=== PATIENT | male | born 1940 | race Caucasian/White ===

== ENCOUNTER 2017-12-12 18:50 | Inpatient (IN) | payer OTHER, MEDICARE ==
[2017-12-12 19:44] LABS: % BASOPHILS 0.5 % (0.0-2.0); % EOSINOPHILS 0.1 % (0.0-5.0); % LYMPHOCYTES 12.8 % (20.0-50.0); % MONOCYTES 8.9 % (2.0-10.0); % NEUTROPHILS 77.7 % (40.0-80.0); HEMOGLOBIN 11.5 gm/dL (12-16); LYMPHOCYTE ABSOLUTE 0.5 Th/cmm (1.5-3.0); MEAN CELL VOLUME 82.6 fl (80-99); MEAN CORPUSCULAR HEMOGLOBIN 26.3 pg (27.0-31.0); MEAN CORPUSCULAR HGB CONC 31.9 pg (28.0-36.0); MEAN PLATELET VOLUME 8.2 fl; MONOCYTE ABSOLUTE 0.4 Th/cmm (0.3-1.0); NEUTROPHILE ABSOLUTE 3.2 Th/cmm (1.8-8.0); PLATELET COUNT 129 Th/cmm (150-400); RED BLOOD COUNT 4.36 Mil/cmm (3.80-5.80); RED CELL DISTRIBUTION WIDTH 17.6 % (11.5-20.0); WHITE BLOOD COUNT 4.1 Th/cmm (4.8-10.8)
--- NOTE | 2017-12-12 19:56 | ED Physician Chart ---
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 HE IS CHRONICALLY ILL WITH A HISTORY OF HYPERTENSION, STATUS POST CVA,CHF, POLIO AND ARTHRITIS. Allergies:: Allergies Allergy/AdvReac Type Severity Reaction Status Date / Time Penicillins [PCN] Allergy Verified 12/12/17 19:19 Vitals:: Vital Signs - 8 hr 12/12/17 19:19 Temp 97.6 F HR 67 RR 17 BP 121/57 O2 Sat % 94 Historian:: EMS, Medical Records Review:: Nurse's Note Reviewed, Old Chart Reviewed, Transfer documents Reviewed ED Review of Systems - Review of Systems General/Constitutional: No fever, No chills, No weight loss, No weakness, No diaphoresis, No edema, No loss of appetite, Other (THIS PATIENT IS UNABLE TO GIVE A REVIEW OF SYSTEMS.) Skin: No skin lesions, No rash, No bruising Head: No headache, No light-headedness Eyes: No loss of vision, No pain, No diplopia ENT: No earache, No nasal drainage, No sore throat, No tinnitus Neck: No neck pain, No swelling, No thyromegaly, No stiffness, No mass noted Cardio Vascular: No chest pain, No palpitations, No PND, No orthopnea, No edema Pulmonary: No SOB, No cough, No sputum, No wheezing GI: No nausea, No vomiting, No diarrhea, No pain, No melena, No hematochezia, No constipation, No hematemesis G/U: No dysuria, No frequency, No hematuria Musculoskeletal: No bone or joint pain, No back pain, No muscle pain Endocrine: No polyuria, No polydipsia Psychiatric: No prior psych history, No depression, No anxiety, No suicidal ideation Hematopoietic: No bruising, No lymphadenopathy Allergic/Immuno: No urticaria, No angioedema Neurological: No syncope, No focal symptoms, No weakness, No paresthesia, No headache, No seizure, No dizziness, No confusion, No vertigo ED Past Medical History - Past Medical History Obtainable: Yes Past Medical History: HTN, CAD, CHF, CVA/TIA, Arthritis, Dementia Family History: Other ( FATHER ALS) Social History: Non Smoker, No Alcohol, No Drug Use, Care Facility Surgical History: CABG, Hernia, Pacemaker Family Medical History - Family Member Father History Unknown: Yes Ethnicity: Non- Living Status: Other Medical History: ALS ED Physical Exam - Physical Examination General/Constitutional: Awake, Well-developed, well-nourished, Alert, No distress, GCS 15, Non-toxic appearing, Ambulatory Other Gen/Cons comments:: LETHARGIC AND DISORIENT TO PLACE AND SITUATION. WITH LEFT SIDED PARALYSIS AND GENERALIZE WEAKNESS Head: Atraumatic Eyes: Lids, conjuctiva normal, PERRL, EOMI Skin: Nl inspection, No rash, No skin lesions, No ecchymosis, Well hydrated, No lymphadenopathy ENMT: External ears, nose nl, Nasal exam nl, Lips, teeth, gums nl Neck: Nontender, Full ROM w/o pain, No JVD, No nuchal rigidity, No bruit, No mass, No stridor Respiratory: Nl effort/Exclusion, Clear to Auscultation, No Wheeze/Rhonchi/Rales Cardio Vascular: RRR, No murmur, gallop, rubs, NL S1 S2 GI: No tenderness/rebounding/guarding, No organomegaly, No hernia, Normal BS's, Nondistended, No mass/bruits, No McBurney tenderness : No CVA tenderness Extremities: No tenderness or effusion, Full ROM, normal strength in all extremities, No edema, Normal digits & nails Neuro/Psych: Alert/oriented, DTR's symmetric, Normal sensory exam, Normal motor strength (LEFT SIDED SPASTIC PARALYSIS), Judgement/insight normal, Mood normal, Normal gait, No focal deficits Misc: Normal back, No paraspinal tenderness ED Labs/Radiology/EKG Results - Lab Results Results: Laboratory Tests 12/12/17 19:32 WBC 4.1 L RBC 4.36 Hgb 11.5 L Hct 36.0 L MCV 82.6 MCH 26.3 L MCHC Differential 31.9 RDW 17.6 Plt Count 129 L MPV 8.2 Neutrophils % 77.7 Lymphocytes % 12.8 L Monocytes % 8.9 Eosinophils % 0.1 Basophils % 0.5 Abnormal Lab Results 12/12/17 12/12/17 12/12/17 19:20 19:32 19:32 WBC 4.1 L RBC 4.36 Hgb 11.5 L Hct 36.0 L MCV 82.6 MCH 26.3 L MCHC Differential 31.9 RDW 17.6 Plt Count 129 L MPV 8.2 Neutrophils % 77.7 Lymphocytes % 12.8 L Monocytes % 8.9 Eosinophils % 0.1 Basophils % 0.5 Sodium Potassium Chloride Carbon Dioxide Anion Gap BUN Creatinine Est GFR ( Amer) Est GFR (Non-Af Amer) BUN/Creatinine Ratio Glucose Calcium Total Bilirubin AST ALT Alkaline Phosphatase Troponin I 0.03 Total Protein Albumin Globulin Albumin/Globulin Ratio Urine Source [place] Urine Color YELLOW Urine Clarity HAZY Urine pH 6.0 Ur Specific [place] 1.025 Urine Protein 100 H Urine Glucose (UA) NEGATIVE Urine Ketones NEGATIVE Urine Blood LARGE H Urine Nitrate NEGATIVE Urine Bilirubin NEGATIVE Urine Urobilinogen 0.2 Ur Leukocyte Esterase MODERATE H Urine RBC >100 H Urine WBC >100 H Ur Epithelial Cells FEW Urine Bacteria NONE SEEN 12/12/17 19:32 WBC RBC Hgb Hct MCV MCH MCHC Differential RDW Plt Count MPV Neutrophils % Lymphocytes % Monocytes % Eosinophils % Basophils % Sodium 137 Potassium 3.3 L Chloride 104 Carbon Dioxide 23.1 Anion Gap 13.2 BUN 25 Creatinine 0.7 Est GFR ( Amer) TNP Est GFR (Non-Af Amer) TNP BUN/Creatinine Ratio 35.7 Glucose 158 H Calcium 8.6 Total Bilirubin 0.6 AST 28 ALT 10 Alkaline Phosphatase 91 Troponin I Total Protein 6.1 Albumin 3.3 L Globulin 2.8 Albumin/Globulin Ratio 1.2 Urine Source Urine Color Urine Clarity Urine pH Ur Specific [place] Urine Protein Urine Glucose (UA) Urine Ketones Urine Blood Urine Nitrate Urine Bilirubin Urine Urobilinogen Ur Leukocyte Esterase Urine RBC Urine WBC Ur Epithelial Cells Urine Bacteria - Radiology Results Results: CHEST X-RAY = P[place]Y [place] AREAS NOTED BILATERALLY - EKG Interpretations EKG Time:: 20:11 Rate & Rhythm: 60 BEAT A MINUTE, SINUS, [place]: LEFT AXIS Comments:: ALL WIDE COMPLEXES ED Assessment - Assessment General Assessment: 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
[2017-12-12 20:33] LABS: ALB/GLOB RATIO 1.2 (1.0-1.8); ALBUMIN 3.3 gm/dL (4.2-5.5); ALKALINE PHOSPHATASE 91 U/L (34-104); ANION GAP 13.2 (7.0-16.0); BILIRUBIN,TOTAL 0.6 mg/dL (0.3-1.0); BUN - UREA NITROGEN 25 mg/dL (7-25); CALCIUM SERUM 8.6 mg/dL (8.6-10.3); CARBON DIOXIDE 23.1 mEq/L (21.0-31.0); CHLORIDE 104 mEq/L (98-107); CREATININE - SERUM 0.7 mg/dL (0.7-1.3); GLUCOSE 158 mg/dL (70-105); POTASSIUM SERUM 3.3 mEq/L (3.5-5.1); SGOT 28 U/L (13-39); SGPT/ALT 10 U/L (7-52); SODIUM SERUM 137 mEq/L (136-145); TOTAL PROTEIN,SERUM 6.1 gm/dL (6.0-8.3)
[2017-12-12 20:37] LABS: URINE MICROSCOPIC INDICATED? YES; URINE SOURCE FOLEY PORT
[2017-12-12 20:40] LABS: URINE BILIRUBIN NEGATIVE (NEGATIVE); URINE BLOOD LARGE (NEGATIVE); URINE GLUCOSE (UA) NEGATIVE (NEGATIVE); URINE KETONE NEGATIVE (NEGATIVE); URINE LEUKOCYTE ESTERASE MODERATE (NEGATIVE); URINE NITRATE NEGATIVE (NEGATIVE); URINE PROTEIN 100 mg/dL (NEGATIVE); URINE UROBILINOGEN 0.2 E.U./dL (0.2 - 1.0)
[2017-12-12 20:46] LABS: URINE CLARITY HAZY (CLEAR); URINE COLOR YELLOW
[2017-12-12 20:53] LABS: URINE BACTERIA NONE SEEN /hpf (NONE SEEN); URINE EPITHELIAL CELLS FEW /lpf (FEW); URINE RBC >100 /hpf (0-5); URINE WBC >100 /hpf (0-5)
[2017-12-12] MEDS ORDERED: Lactated Ringer 1,000 ML IV SCH (20:56)
[2017-12-12 20:58] LABS: pH 7.49 (7.35-7.45)
[2017-12-12 20:59] LABS: ALLEN TEST POSITIVE
[2017-12-12] MEDS ORDERED: Potassium Chloride 40 MEQ, Lidocaine 1% 20mL Vial 25 MG in Sodium Chloride 0.9% 250 ML IV PRN (21:43)
[2017-12-12] MEDS ORDERED: Potassium Chloride 20 mEq ER Tab PO PRN (21:43)
[2017-12-12] MEDS ORDERED: Mag Sulfate 2gm/50mL Premix 2 GM/50 ML BAG IV PRN (21:43)
[2017-12-12] MEDS ORDERED: Morphine Sulfate 2 mg/mL 1mL Syr IVP PRN (21:43)
[2017-12-13] MEDS: Sodium Chloride 0.9% 1,000 ML IV SCH ×2 (06:23→23:03)
[2017-12-13 06:27] LABS: ANION GAP 8.1 (7.0-16.0); BUN - UREA NITROGEN 24 mg/dL (7-25); CALCIUM SERUM 8.3 mg/dL (8.6-10.3); CARBON DIOXIDE 26.9 mEq/L (21.0-31.0); CHLORIDE 102 mEq/L (98-107); CREATININE - SERUM 0.6 mg/dL (0.7-1.3); GLUCOSE 116 mg/dL (70-105); SODIUM SERUM 134 mEq/L (136-145)
[2017-12-13 06:37] LABS: % EOSINOPHILS 0.4 % (0.0-5.0); LYMPHOCYTE ABSOLUTE 0.9 Th/cmm (1.5-3.0); MEAN PLATELET VOLUME 8.3 fl
[2017-12-13 06:39] LABS: % BASOPHILS 0.1 % (0.0-2.0); % LYMPHOCYTES 14.7 % (20.0-50.0); % NEUTROPHILS 76.8 % (40.0-80.0); HEMATOCRIT 33.2 % (41.0-60); HEMOGLOBIN 10.8 gm/dL (12-16); MEAN CELL VOLUME 82.1 fl (80-99); MEAN CORPUSCULAR HEMOGLOBIN 26.8 pg (27.0-31.0); MEAN CORPUSCULAR HGB CONC 32.7 pg (28.0-36.0); MONOCYTE ABSOLUTE 0.5 Th/cmm (0.3-1.0); PLATELET COUNT 143 Th/cmm (150-400); RED BLOOD COUNT 4.04 Mil/cmm (3.80-5.80); RED CELL DISTRIBUTION WIDTH 17.3 % (11.5-20.0); WHITE BLOOD COUNT 6.4 Th/cmm (4.8-10.8)
--- NOTE | 2017-12-13 09:37 | Diagnostic Imaging Report ---
CHEST X-RAY: AP view INDICATION: Cough COMPARISON: None FINDINGS: Left there is evidence of prior median sternotomy. Left chest wall AICD apparatus is noted with leads in the region of the right atrium and right ventricle. There is abnormal opacity projecting along the left mid to left lower hemithorax. Mild cardiomegaly is noted. Small left effusion is noted. Gas-filled loops of bowel the upper abdomen are noted. Degenerative changes of the spine are noted. IMPRESSION: Abnormal opacity projecting along the left mid to lower hemithorax. This is indeterminate may be due to patient positioning, however infiltrate and mass lesion cannot be excluded. Repeat chest x-ray is recommended for further assessment. If necessary, CT follow-up may also be obtained. AICD noted Evidence of prior median sternotomy Mild cardiomegaly.
--- NOTE | 2017-12-13 09:56 | Diagnostic Imaging Report ---
Head CT without intravenous contrast Indication: Altered mental status Comparison: None Technique: Axial images were obtained from the vertex to the skull base without IV contrast. Coronal reconstructions were made. Total DLP: [id number], [id number] FINDINGS: Exam is limited due to motion. Images of the brain obtained without contrast demonstrate no evidence of an acute hemorrhage. Atrophy is noted. Areas of encephalomalacia are seen along the right parietal and temporal lobe likely due to an old infarct. The ventricles and basal cisterns are patent. No mass effect or midline shift. Assessment for skull fracture is limited due to motion however no obvious skull fracture identified. Atherosclerosis noted. IMPRESSION: Limited exam due to motion. No evidence of acute intracranial hemorrhage. RIGHT temporal and parietal lobe encephalomalacia likely related to an old infarct Atrophy. Atherosclerotic vascular disease.
[2017-12-13] MEDS ORDERED: Potassium Chloride 20 mEq ER Tab PO ONE (10:01)
[2017-12-13] MEDS ORDERED: Hydrocodone/APAP 5mg/325mg Tab PO PRN (10:06)
[2017-12-13] MEDS ORDERED: Morphine Sulfate 4 mg/mL 1mL Syr IVP PRN (10:06)
--- NOTE | 2017-12-13 10:48 | History & Physical ---
ADMIT DATE: 12/13/2017 CHIEF COMPLAINT: Cough, congestion, fevers and shortness of breath and worsening confusion. HISTORY OF PRESENT ILLNESS: The patient is a pleasant 77-year-old male. He lives in a boarding home, yesterday he was found to be more confused than usual. He was experiencing cough, congestion and shortness of breath as well. He presented to the Emergency Room, where he was found to have COPD exacerbation along with aspiration pneumonia and UTI. PAST MEDICAL HISTORY: Significant for right-sided CVA with left hemiplegia along with COPD and chronic pain and DJD as well. SOCIAL HISTORY: Denies any history of alcohol, tobacco, or drug abuse. FAMILY HISTORY: Noncontributory. ALLERGIES: HE IS ALLERGIC TO PENICILLIN, IT CAUSES RASH. SURGICAL HISTORY: Positive for coronary artery bypass surgery about 20 years ago. MEDICATIONS: Home medication reviewed and reconciled. REVIEW OF SYSTEMS: GENERAL: Positive recent fatigue, confusion and decreased appetite. HEENT: No recent head trauma, change in vision, taste, hearing, or smell. Oral: No recent pain or discharge. NECK: No recent tracheal deviation. ABDOMEN: No pain or distension. SKIN: No recent rashes. MUSCULOSKELETAL: He has history of muscle weakness, decreased appetite and muscle wasting on left side of the body, which is worse than the right. RESPIRATORY: Positive for COPD and history of cough and congestion for the last couple of days. NEUROLOGIC: He has history of right-sided CVA. CARDIOVASCULAR: History of coronary artery disease and bypass graft. PSYCHIATRIC: No history of psychosis, hallucination. MUSCULOSKELETAL: He is mostly bedbound. PHYSICAL EXAMINATION: VITAL SIGNS: Temperature 97.7 degrees, heart rate is 64, respirations 16, blood pressure 98/56. Currently no pain. GENERAL: No acute distress. He is more awake and alert now. HEENT: No acute issues. NECK: Trachea is midline. CARDIOVASCULAR: Regular rate and rhythm. RESPIRATORY: Decreased breath sounds bilaterally with rales and congestion and wheezing as well. SKIN: No rashes. MUSCULOSKELETAL: He has significant muscle wasting on the left side of the body and some on the right side as well. NEUROLOGIC: He has left-sided hemiplegia. PSYCHIATRIC: No psychosis or hallucinations. NEUROLOGIC: He has left-sided hemiplegia. GENITOURINARY: He has been experiencing increased urinary frequency, but no hematuria noted. LABORATORY DATA: UA is positive for UTI. Sodium 137, potassium 3.3, chloride 104, bicarbonate 23.1, BUN 25, creatinine 0.7, glucose 158, calcium is 8.3, albumin is low at 3.3. He has also been experiencing decreased appetite and weight loss. ABG shows pH of 7.49, pO2 73, bicarbonate 30.5. UA is positive for UTI. White count is 4.1, hemoglobin is 11.5. Chest x-ray does show infiltrate. CT of the head was done, which does not show any acute abnormalities. ASSESSMENT: 1. Chronic obstructive pulmonary disease exacerbation. 2. Aspiration pneumonia. 3. Metabolic encephalopathy. 4. Urinary tract infection. 5. Hypokalemia. 6. Moderate malnutrition. 7. Coronary artery disease with history of coronary artery bypass graft. 8. Right-sided cerebrovascular accident with left hemiplegia. PLAN: The patient's blood pressure is running on the low side. He is receiving IV hydration. I am holding parameters for his medications. He was on Dilaudid 4 mg at home. I asked him and he is not in any pain, so I have stopped it and put on [place] p.o. as needed. Replenish the potassium. He is on Levaquin and Flagyl. No Zosyn since he is ALLERGIC TO PENICILLIN. Prognosis is guarded. Also, his Plavix has been continued from home. Rocephin has been discontinued. He is on Levaquin and Flagyl now. Follow up on urine cultures. Discussed care plan. JOB# [id number]
[2017-12-13] MEDS: Levofloxacin 500mg/100mL 500 MG/100 ML BAG IV SCH (11:10)
[2017-12-13] MEDS ORDERED: Sodium Chloride 0.9% 500 ML IV ONE (12:29)
[2017-12-13] MEDS: metroNIDAZOLE 500mg/NS 100mL 500 MG/100 ML BAG IV SCH ×2 (13:18→20:00)
[2017-12-13] MEDS ORDERED: cefTRIAXone 1 GM in Sodium Chloride 0.9% 50 ML IV SCH (21:00)
[2017-12-14] MEDS: metroNIDAZOLE 500mg/NS 100mL 500 MG/100 ML BAG IV SCH ×2 (04:06→13:34)
[2017-12-14 06:25] LABS: % LYMPHOCYTES 25.8 % (20.0-50.0); % MONOCYTES 10.4 % (2.0-10.0); % NEUTROPHILS 62.8 % (40.0-80.0); HEMATOCRIT 31.6 % (41.0-60); HEMOGLOBIN 10.4 gm/dL (12-16); LYMPHOCYTE ABSOLUTE 0.7 Th/cmm (1.5-3.0); MEAN CELL VOLUME 81.9 fl (80-99); MEAN CORPUSCULAR HEMOGLOBIN 26.8 pg (27.0-31.0); MEAN CORPUSCULAR HGB CONC 32.7 pg (28.0-36.0); MEAN PLATELET VOLUME 8.3 fl; MONOCYTE ABSOLUTE 0.3 Th/cmm (0.3-1.0); NEUTROPHILE ABSOLUTE 1.7 Th/cmm (1.8-8.0); PLATELET COUNT 129 Th/cmm (150-400); RED BLOOD COUNT 3.86 Mil/cmm (3.80-5.80)
[2017-12-14 06:36] LABS: ANION GAP 7.1 (7.0-16.0); BUN - UREA NITROGEN 18 mg/dL (7-25); CALCIUM SERUM 8.1 mg/dL (8.6-10.3); CARBON DIOXIDE 27.6 mEq/L (21.0-31.0); CHLORIDE 106 mEq/L (98-107); CREATININE - SERUM 0.6 mg/dL (0.7-1.3); GLUCOSE 93 mg/dL (70-105); POTASSIUM SERUM 3.7 mEq/L (3.5-5.1); SODIUM SERUM 137 mEq/L (136-145)
[2017-12-14 07:31] LABS: WHITE BLOOD COUNT 2.7 Th/cmm (4.8-10.8)
[2017-12-14] MEDS: Levofloxacin 500mg/100mL 500 MG/100 ML BAG IV SCH (09:51)
--- NOTE | 2017-12-14 16:40 | Discharge Summary ---
DATE OF DISCHARGE: 12/14/2017 DATE OF DISCHARGE: 12/14/2017. CAUSE OF ADMISSION: The patient is a pleasant 77-year-old male. He lives in a boarding home. He was found to be more confused than usual. He was experiencing cough, congestion, and shortness of breath. He presented to the ER where he was found to have COPD exacerbation along with aspiration pneumonia and UTI. ADMITTING DIAGNOSES: 1. Chronic obstructive pulmonary disease exacerbation. 2. Aspiration pneumonia. 3. Metabolic encephalopathy. 4. Urinary tract infection. 5. Hypokalemia. 6. Moderate malnutrition. 7. Coronary artery disease with history of coronary artery bypass graft. 8. Right-sided cerebrovascular accident, left hemiplegia. DISCHARGE DIAGNOSES: 1. Chronic obstructive pulmonary disease exacerbation. 2. Aspiration pneumonia. 3. Metabolic encephalopathy. 4. Urinary tract infection. 5. Hypokalemia. 6. Moderate malnutrition. 7. Coronary artery disease with history of coronary artery bypass graft. 8. Right-sided cerebrovascular accident, left hemiplegia. SUMMARY OF HOSPITAL COURSE: The patient received IV hydration. His blood pressure running on the low side, holding parameters were given for the medication. He has not been on any blood pressure medications. I also stopped his home medication of Dilaudid as he was not in any pain. He was given p.r.n. [place], but he did not even require that, potassium was replenished. He was on Levaquin and Flagyl. No Zosyn was started since allergic to PENICILLIN. Prognosis was discussed with the patient. He is awake and alert. Plavix was continued, the patient is doing much better now. PHYSICAL EXAMINATION: VITAL SIGNS: Temperature is 98.6 degrees, heart rate is 60, respirations 18, and blood pressure 97/42. Currently, no pain. GENERAL: No acute distress. He is awake and alert. He is feeling much better now. No shortness of breath. HEENT: No acute issues. NECK: Trachea is midline. CARDIOVASCULAR: Regular rate and rhythm. RESPIRATORY: Decreased breath sounds bilaterally. PSYCHIATRIC: No psychosis or hallucinations. LABORATORY DATA: The patient's UA is positive for UTI. White count is 2.7, hemoglobin is 10.4, and platelet count 129,000. ABG shows pH of 7.49, pO2 of 73. Sodium 137, potassium 3.7, chloride 106, bicarbonate 27.6, BUN 18, creatinine 0.6, calcium is 8.1. DISPOSITION: He is being discharged home. PROGNOSIS: Fair. ACTIVITY: As tolerated. MEDICATIONS: I will give him a script for Levaquin and Flagyl for approximately 3 more days. PROCEDURES: None. CONSULTS: None. PROGNOSIS: Fair. DIET: Advance diet as tolerated. JOB# [id number]
== END 2017-12-14 16:50 | disposition home or self-care (01) | DRG 177 ==
LOC: ER 18:50 → TELE 21:15
PROVIDERS: ADMIT General Practice; ATTEND General Practice
DX: J69.0 Pneumonitis due to inhalation of food and vomit (principal); G93.41 Metabolic encephalopathy; E44.0 Moderate protein-calorie malnutrition; I50.9 Heart failure, unspecified; I11.0 Hypertensive heart disease with heart failure; N39.0 Urinary tract infection, site not specified; J44.1 Chronic obstructive pulmonary disease with (acute) exacerbation; I69.354 Hemiplegia and hemiparesis following cerebral infarction affecting left non-dominant side; E87.6 Hypokalemia; G89.29 Other chronic pain; R09.02 Hypoxemia; J84.10 Pulmonary fibrosis, unspecified; M19.90 Unspecified osteoarthritis, unspecified site; F03.90 Unspecified dementia, unspecified severity, without behavioral disturbance, psychotic disturbance, mood disturbance, and anxiety; I25.10 Atherosclerotic heart disease of native coronary artery without angina pectoris; Z95.1 Presence of aortocoronary bypass graft; Z88.0 Allergy status to penicillin; Z68.27 Body mass index [BMI] 27.0-27.9, adult; Z95.0 Presence of cardiac pacemaker
CPT/HCPCS: 36415-UA; 36600-90; 70450-TC; 71045-TC; 80048-TC; 80053-TC; 81001-TC; 82803-TC; 82948-90; 83036-90; 83735-TC; 84484-TC; 85025-TC; 87086-90; 90799; 93005; 96374; J0696; J1956; J2001; J3480; J7030; Z7610